=== PATIENT | female | born 1955 | race Caucasian/White ===

== ENCOUNTER 2024-06-23 20:18 | Inpatient (IN) | payer MEDICARE ==
[2024-06-24 00:15] LABS: #Basophils 0.05 10x3/uL (0.0-0.2); %Basophils 0.9 % (0.0-1.0); %Eosinophils 3.8 % (0.0-10.0); %Lymphocytes 32.8 % (21.0-51.0); %Monocytes 9.5 % (0.0-10.0); %Neutrophils 52.8 % (42.0-75.0); Hematocrit 39.2 % (36.0-47.0); Hemoglobin 12.4 g/dL (12.0-16.0); Mean Corpuscular HGB CONC 31.6 g/dL (32.0-36.0); Mean Corpuscular Hemoglobin 32.6 pg (27.0-31.0); Mean Corpuscular Volume 103.2 fL (78.0-98.0); Mean Platelet Volume 11.8 fL (7.4-10.4); Platelet Count 152 10x3/uL (130-400)
[2024-06-24 00:17] VITALS: BMI 24.7
[2024-06-24] MEDS: Apixaban 5 MG TAB PO SCH ×2 (00:28→10:10)
[2024-06-24 00:29] LABS: Anion Gap 15 mmol/L (10-20); BUN (Urea Nitrogen) 15 mg/dL (9.8-20.1); Calc. Creatinine Clearance 73 mL/min (70-130); Calcium 8.4 mg/dL (7.8-10.44); Carbon Dioxide 15 mmol/L (23-31); Chloride 109 mmol/L (98-107); Estimated GFR 81; Glucose 91 mg/dL (80-115); Potassium 4.6 mmol/L (3.5-5.1); Sodium 134 mmol/L (136-145)
[2024-06-24] MEDS: Sodium Chloride 0.9% 500 ML IV SCH (00:29)
[2024-06-24] MEDS ORDERED: Enoxaparin 40 MG (0.4 mL) SYRINGE SC SCH (09:00)
[2024-06-24] MEDS ORDERED: Acetaminophen 325 MG TAB PO PRN (11:06)
[2024-06-24] MEDS: Aspirin 81 mg Enteric Coated Tablet PO SCH (12:54)
[2024-06-25 04:03] LABS: Hemoglobin A1c 5.1 % (4.0-6.0)
[2024-06-25 04:04] LABS: Hemoglobin 11.5 g/dL (12.0-16.0)
[2024-06-25 04:13] LABS: Anion Gap 12 mmol/L (10-20); BUN (Urea Nitrogen) 17 mg/dL (9.8-20.1); Calc. Creatinine Clearance 84 mL/min (70-130); Calcium 7.9 mg/dL (7.8-10.44); Carbon Dioxide 17 mmol/L (23-31); Cardiac Risk 2.1 (Less than 4.5); Chloride 112 mmol/L (98-107); Cholesterol 98 mg/dl (< 200 Desired); Estimated GFR 95; Glucose 103 mg/dL (80-115); HDL Cholesterol 46 mg/dL (>60 Neg Risk); LDL Cholesterol, Calculated 44 mg/dL; Sodium 137 mmol/L (136-145); Triglycerides 39 mg/dL (Less than 150)
[2024-06-25 08:17] VITALS: BP 112/78; TEMP 98.8
[2024-06-25] MEDS: Aspirin 81 mg Enteric Coated Tablet PO SCH (08:30)
== END 2024-06-25 13:00 | disposition home or self-care (01) | DRG 92 ==
LOC: ERS 20:18 → 2SE 21:08 → OBSVTOIN 21:08 → 2SE 22:15
PROVIDERS: ADMIT Internal Medicine; ATTEND Internal Medicine
DX: R29.90 Unspecified symptoms and signs involving the nervous system (principal); I48.20 Chronic atrial fibrillation, unspecified; R47.01 Aphasia; I10 Essential (primary) hypertension; F17.210 Nicotine dependence, cigarettes, uncomplicated; Z98.890 Other specified postprocedural states; Z95.2 Presence of prosthetic heart valve; Z90.49 Acquired absence of other specified parts of digestive tract; I25.2 Old myocardial infarction
CPT/HCPCS: 36415; 70551; 80048; 80061; 83036; 84443; 85018; 85025; 93005; 93306; J7030